=== PATIENT | male | born 1980 | race Hispanic/Latino ===

== ENCOUNTER 2017-04-26 08:32 | Day surgery (SDC) | payer OTHER ==
[~2017-04-26] VITALS: Ht 182.9 cm; Wt 102.0 kg
[~2017-04-26 08:32] MED LIST: OMEP40CA36 PO; Sodium Chloride LOK Flush 10 mL Syringe IV PRN; fentaNYL-PF 50 mCg/mL 2 mL Inj IVPUSH PRN
[2017-04-26] MEDS ORDERED: fentaNYL-PF 50 mCg/mL 2 mL Inj IVPUSH ONE (08:33)
[2017-04-26 09:00] VITALS: BP 149/74; PULSE 54; RESP 16; O2SAT 97
[2017-04-26] MEDS: 0.9% Sodium Chloride 1,000 ML IV SCH ×2 (09:21→09:41)
[2017-04-26 09:51] VITALS: BP 86/46; PULSE 53; RESP 16; O2SAT 94
[2017-04-26 10:03] VITALS: BP 101/46; PULSE 48; RESP 14
[2017-04-26 10:13] VITALS: BP 109/58; PULSE 50; RESP 16; O2SAT 96
--- NOTE | 2017-04-27 05:30 | ENDO ---
[address] [address] ENDOSCOPY PROCEDURE PATIENT: JAZZY ALMONTE : 1980 MR#: [id number] ADMIT: 04/26/2017 JOB ID: [id number] DATE OF SERVICE: 04/26/2017 FIRST PROCEDURE PERFORMED: Esophagogastroduodenoscopy. INDICATION: Gastroesophageal reflux. ASA CLASSIFICATION: The patient's ASA classification is I. MALLAMPATI SCORE: Mallampati score is 2. MEDICATIONS: 1. Versed 7 mg. 2. Fentanyl 150 mcg. INSTRUMENT USED: [id number]. PROCEDURE DETAILS: After informed consent was obtained, the patient was brought into the GI suite, where he was placed on oxygen via nasal cannula and monitored with continuous pulse oximeter, telemetry, and blood pressure monitoring. A time-out was performed. Then, he was placed in the left lateral decubitus position, and medications were administered for sedation. A bite block was placed. An EGD scope was then inserted through the bite block and advanced under direct visualization to the second portion of the duodenum without difficulty. FINDINGS: 1. Normal appearing duodenal bulb, first and second portions. Multiple random biopsies were obtained. 2. Normal appearing pylorus, antrum and gastric body. 3. Retroflexed views in the gastric body revealed a normal appearing cardia and fundus. 4. Multiple random biopsies were obtained throughout the antrum and body of the stomach. 5. The GE junction was at approximately 40 cm. There was a short tongue of salmon-colored mucosa arising from the GE junction. The remainder of esophagus otherwise appeared unremarkable. Multiple biopsies were obtained in the distal esophagus. IMPRESSION: 1. C0M1 suspected [employer]. 2. Otherwise normal exam to second portion of duodenum. RECOMMENDATIONS: 1. Continue PPI. 2. Proceed to colonoscopy. SECOND PROCEDURE PERFORMED: Colonoscopy. INDICATION: Blood in stool. ASA CLASSIFICATION, MALLAMPATI SCORE AND MEDICATIONS: Please see above for ASA classification, Mallampati score and medications. INSTRUMENT USED: [id number]. PREPARATION QUALITY: Good. PROCEDURE DETAILS: After completion of the EGD exam, the patient was turned and a digital rectal exam was performed which was unremarkable. A colonoscope was then inserted into the rectum and advanced under direct visualization to the cecum. Once the cecum was reached, the terminal ileum was intubated, which was identified by the presence of the ileocecal valve and villous appearing mucosa of the terminal ileum. In the he terminal ileum the colonoscope was then withdrawn back into the rectum as the mucosa and lumen were examined. In the rectum, retroflexion was performed. Following retroflexion, remaining air in the rectum was suctioned, and procedure was completed. FINDINGS: Normal exam from rectum to terminal ileum. IMPRESSION: 1. Normal colonoscopy. 2. Suspect blood in stool from benign anorectal disease. RECOMMENDATIONS: 1. Fiber rich diet. 2. Follow up in GI clinic. COMPLICATIONS: None. ESTIMATED BLOOD LOSS: Zero.
--- NOTE | 2017-04-30 14:56 | PATH ---
SURGICAL PATHOLOGY Attending Physician:Tereso Ramirez CASE STATUS: Signed Out PATIENT NAME: JAZZY ALMONTE PID: [id number] : 1980 DATE COLLECTED:04/26/2017 16:44 SPECIMEN: 1: Duodenum, Biopsy 2: Gastric, Biopsy 3: Esophagus, Biopsy CLINICAL HISTORY: 1. DUODENAL BIOPSY 2. GASTRIC BIOPSY 3. DISTAL ESOPHAGUS FINAL DIAGNOSIS: 1. Duodenal Biopsy: Duodenal mucosa with no diagnostic abnormality. Negative for active inflammation, features of sprue, dysplasia or malignancy. 2. Gastric Biopsy: Portions of gastric antral and body-type mucosa with mild chronic gastritis. No definite H. pylori organisms identified by H&E stain. Immunohistochemistry studies pending; results will be reported as an addendum. Negative for intestinal metaplasia, dysplasia and malignancy. 3. Distal Esophagus, Biopsy: Squamocolumnar junctional mucosa with no diagnostic abnormality. Negative for intestinal metaplasia. Negative for dysplasia and malignancy. ICD10: K29.7 GROSS DESCRIPTION: The specimen is received in three formalin filled containers labeled with the patient's name. 1). The specimen is sublabeled "duodenal" and consists of 3 portions of tissue which aggregate to 0.3 x 0.3 x 0.3 CM. The specimen is entirely submitted in cassette 1A. 2). The specimen is sublabeled "gastric" and consists of 3 portions of tissue which aggregate to 0.3 x 0.3 x 0.2 CM. The specimen is entirely submitted in cassette 2A. 3). The specimen is sublabeled "distal esophagus" and consists of 2 tiny portions of tissue which aggregate to 0.2 x 0.2 x 0.1 CM. The specimen is entirely submitted in cassette 3A. 04/26/2017 [facility] ICD-9 CODES: CPT CODES: 1: 36715 2: 10740, 68198 3: 56802 PROCEDURE/ADDENDA: Addendum SPI Addendum Diagnosis {Not Entered} Addendum Comment IMMUNOHISTOCHEMISTRY RESULTS: 2.: Gastric Biopsy: Negative for H. pylori organisms by immunohistochemistry studies. Electronically Signed Out Sylvia Youngblood MD Electronically Signed Out Sylvia Youngblood MD [facility] [address] [place] [address], [place] [address] Technical component performed at [facility], [address], [place], [address]
== END 2017-04-26 23:59 | disposition home or self-care (01) ==
LOC: END 08:32
PROVIDERS: ATTEND Internal Medicine Gastroenterology
DX: K21.9 Gastro-esophageal reflux disease without esophagitis (principal); K92.1 Melena; K29.50 Unspecified chronic gastritis without bleeding; F10.20 Alcohol dependence, uncomplicated; Z87.891 Personal history of nicotine dependence
CPT/HCPCS: 43239; 45378; 88305; 88342; 99152; 99153; J2250; J3010; J7030